=== PATIENT | female | born 1940 | race Caucasian/White ===

== ENCOUNTER 2018-06-25 08:47 | Emergency (ER) | payer MEDICARE, BC ==
--- NOTE | 2018-06-25 09:54 | CT ---
Head CT Technique: Multiple axial sections through the brain were obtained. Intravenous contrast was not utilized. Comparison: No prior intracranial imaging is available. Findings: Ventricles along with basal cisterns and sulci over the convexities are mildly prominent. Minimal diminished density is noted within the periventricular white matter compatible with small vessel ischemic demyelination change. No other abnormal parenchymal densities are seen. Mild atherosclerotic calcification is seen within the right vertebral vessel. Minimal mucosal thickening is partially visualized within the right maxillary sinus. No acute calvarial abnormality is seen. Impression: 1. Minimal sinus finding which is felt to be incidental. 2. Mild senescent change as noted above. 3. No acute intracranial abnormality is identified. Diagnostic code #2
--- NOTE | 2018-06-25 10:26 | EDM.PDOC ---
ED HPI GENERAL MEDICAL PROBLEM - General Chief Complaint: Cardiovascular Problem Stated Complaint: BLOOD PRESSURE SENT BY KATERIN Time Seen by Provider: 06/25/18 09:05 Source of Information: Reports: Patient, RN Notes Reviewed - History of Present Illness INITIAL COMMENTS - FREE TEXT/NARRATIVE: 78-year-old lady presents with multiple concerns. She has not been feeling well the last few days in a nonspecific way. She checked her blood pressure this morning it was quite elevated sounds like it was in the 180 some range over around 90 diastolic. She does appear to have some mild dementia, not able to give a real sharp history. She also is complaining of headache and some facial discomfort. She states she slipped and fell on the ice 2 or 3 months ago. She is having more severe headache this past week or so. The headache is primarily posterior, non-throbbing. She states she feels dizzy. She did take her blood pressure meds early this morning, she has no chest pain or difficulty breathing. She is also inquiring about her prednisone that she takes for myasthenia gravis. She is wondering if the dosage should be changed but cannot give me a good reason why that should be done. She had been seeing Dr. Robles but it sounds like he has retired. She has an appointment to see a different Neurologist "in September". - Related Data Allergies Allergy/AdvReac Type Severity Reaction Status Date / Time No Known Allergies Allergy Verified 06/25/18 09:01 Home Meds: Home Meds Alendronate Sodium [Alendronate] 70 mg PO ASDIRECTED 10/19/14 [History] Aspirin 81 mg PO DAILY 10/19/14 [History] Calcium Carbonate/Vitamin D3 [Caltrate 600 + D Tablet] 600 mg PO DAILY 10/19/14 [History] Metoprolol Succinate [Toprol XL] 25 mg PO DAILY 10/19/14 [History] Omeprazole 20 mg PO DAILY 10/19/14 [History] predniSONE [Prednisone] 10 mg PO ASDIRECTED 10/19/14 [History] Cholecalciferol (Vitamin D3) [Vitamin D3] 3,000 unit PO DAILY 12/20/14 [History] B2/Vit A,C & E/Lut/Zeaxanth/Mn [Icaps] 1 each PO DAILY 02/24/15 [History] Diltiazem [Cardizem CD] 240 mg PO DAILY 02/24/15 [History] Past Medical History HEENT History: Reports: Impaired Vision Cardiovascular History: Reports: Hypertension Neurological History: Reports: Other (See Below) Other Neuro History: myesthenia gravis Social & Family History - Tobacco Use Smoking Status *Q: Never Smoker - Caffeine Use Caffeine Use: Reports: Coffee - Recreational Drug Use Recreational Drug Use: No ED ROS GENERAL - Review of Systems Review Of Systems: See Below Constitutional: Denies: Fever, Chills, Diaphoresis HEENT: Denies: Throat Pain Respiratory: Denies: Shortness of Breath, Pleuritic Chest Pain Cardiovascular: Denies: Chest Pain GI/Abdominal: Denies: Abdominal Pain, Nausea, Vomiting Musculoskeletal: Denies: Leg Pain Neurological: Reports: Dizziness. Denies: Numbness, Tingling, Trouble Speaking , Weakness Psychiatric: Reports: Anxiety ED EXAM, GENERAL - Physical Exam Exam: See Below General Appearance: Alert, Anxious Eye Exam: Bilateral Eye: PERRL Throat/Mouth: Normal Inspection Head: Atraumatic Neck: Supple, Full Range of Motion Respiratory/Chest: No Respiratory Distress, Lungs Clear, Normal Breath Sounds Cardiovascular: Regular Rate, Rhythm GI/Abdominal: Soft, Non-Tender Back Exam: No: CVA Tenderness (L), CVA Tenderness (R) Extremities: Normal Inspection, Normal Range of Motion. No: Leg Pain Neurological: Alert, No Motor/Sensory Deficits Skin Exam: Warm, Dry, Normal Color Course - Vital Signs Last Recorded V/S: Last Vital Signs Temp 97.4 F 06/25/18 12:40 Pulse 70 06/25/18 12:40 Resp 16 06/25/18 12:40 BP 144/83 H 06/25/18 12:40 Pulse Ox 98 06/25/18 12:40 - Orders/Labs/Meds Labs: Laboratory Tests 06/25/18 06/25/18 Range/Units 09:50 09:50 WBC 6.22 (3.98-10.04) K/mm3 RBC 4.90 (3.98-5.22) M/mm3 Hgb 14.4 (11.2-15.7) gm/L Hct 44.5 (34.1-44.9) % MCV 90.8 (79.4-94.8) fl MCH 29.4 (25.6-32.2) pg MCHC 32.4 (32.2-35.5) g/dl RDW Std Deviation 46.9 H (36.4-46.3) fL Plt Count 258 (182-369) K/mm3 MPV 10.3 (9.4-12.3) fl Neut % (Auto) 89.2 H (34.0-71.1) % Lymph % (Auto) 7.7 L (19.3-51.7) % [place] % (Auto) 2.9 L (4.7-12.5) % Eos % (Auto) 0 L (0.7-5.8) Baso % (Auto) 0.0 L (0.1-1.2) % Neut # (Auto) 5.55 (1.56-6.13) K/mm3 Lymph # (Auto) 0.48 L (1.18-3.74) K/mm3 [place] # (Auto) 0.18 L (0.24-0.36) K/mm3 Eos # (Auto) 0.00 L (0.04-0.36) K/mm3 Baso # (Auto) 0.00 L (0.01-0.08) K/mm3 Manual Slide Review Abnormal smear Sodium 139 (136-145) mEq/L Potassium 4.2 (3.5-5.1) mEq/L Chloride 103 (98-107) mEq/L Carbon Dioxide 27 (21-32) mEq/L Anion Gap 13.2 (5-15) BUN 16 (7-18) mg/dL Creatinine 0.9 (0.55-1.02) mg/dL Est Cr Clr Drug Dosing TNP Estimated GFR (MDRD) > 60 (>60) mL/min BUN/Creatinine Ratio 17.8 (14-18) Glucose 135 H (83-115) mg/dL Calcium 8.9 (8.5-10.1) mg/dL Total Bilirubin 0.3 (0.2-1.0) mg/dL AST 17 (15-37) U/L ALT 30 (14-59) U/L Alkaline Phosphatase 64 (46-116) U/L Total Protein 6.4 (6.4-8.2) g/dl Albumin 3.2 L (3.4-5.0) g/dl Globulin 3.2 gm/dL Albumin/Globulin Ratio 1.0 (1-2) - Re-Assessments/Exams Free Text/Narrative Re-Assessment/Exam: 06/25/18 14:18 Patient demonstrated mild, not severe confusion at time of exam. When asked if she had seen a provider at the clinic she replied "no, the clinic is closed today" it sounds like she had called the clinic for appointment, "got the recording if this is an emergency go to the ER" so that is what she did. She was concerned about her blood pressure being high at home which may be was but on arrival to ED her blood pressure was not significantly high initial reading 165/83 and blood pressure did continue to trend down from there to the 150s, 140s and eventually of 137/65 reading. She stated that she had taken her blood pressure medicine this morning prior to coming in so those meds did eventually help bring her blood pressure down with nothing further given here in the ED. ceramic artist showed sinus rhythm, no ectopy. She had no chest pain or difficulty breathing while in the ED. I did check CBC and CMP and those labs were relatively normal. At time of discharge she started asking about multiple other things including whether she should be changing her prednisone dosage for her "myasthenia gravis", whether she should be on an antidepressant and a few others somewhat [id number] questions. I discussed with her that if she is she is going to be on an antidepressant or something for anxiety that should be prescribed by her regular medical provider who knows her history better than myself just seeing her this one time in the ED. Head CT was done considering her fall 2 or 3 months ago, headache and what seems to be some mild confusion. Head CT was normal. We did call and get an appointment for her to see her regular provider Dr Mcmanus, 2 days from now. She does know where she is at, who her regular medical provider is and answers other questions appropriately so it does seem safe for her to go home. Discharge instr. as documented. Departure - Departure Time of Disposition: 12:20 Disposition: Home, Self-Care 01 Condition: Fair Clinical Impression: Anxiety Hypertension Qualifiers: Hypertension type: essential hypertension Qualified Code(s): I10 - Essential ( primary) hypertension Instructions: Generalized Anxiety Disorder, Adult, Hypertension Referrals: Solo Bernard MD [Primary Care Provider] - Forms: ED Department Discharge, ED Return to Work/School Form Additional Instructions: Your blood pressure came down nicely while you have been here in the ED and now is at a normal level. Continue your current medications as prescribed. There is no evidence for heart attack, stroke or other serious medical problem at this time. With the multiple symptoms and concerns you have we need to have you follow-up with your regular provider Dr. Mcmanus for further evaluation, treatment as needed. We have set up an appointment for you for 11:30 AM this Monday 2 days from now to see Dr. Mcmanus at the clinic.
[2018-06-25 13:21] VITALS: BP 144/83
== END 2018-06-25 12:40 | disposition home or self-care (01) ==
LOC: JD.ED 08:47
DX: I10 Essential (primary) hypertension (principal); F41.9 Anxiety disorder, unspecified; R51 Headache; G70.00 Myasthenia gravis without (acute) exacerbation; Z79.82 Long term (current) use of aspirin; Z79.899 Other long term (current) drug therapy
CPT/HCPCS: 36415; 70450; 70450-26; 80053; 85025; 99282; 99284-25

== ENCOUNTER 2018-08-22 06:42 | Emergency (ER) | payer OTHER, MEDICARE, BC ==
[2018-08-22 06:53] VITALS: BP 137/83
--- NOTE | 2018-08-22 07:33 | EDM.PDOC ---
ED HPI GENERAL MEDICAL PROBLEM - General Chief Complaint: Back Pain or Injury Stated Complaint: BACK INJURY Time Seen by Provider: 08/22/18 06:52 Source of Information: Reports: Patient History Limitations: Reports: No Limitations - History of Present Illness INITIAL COMMENTS - FREE TEXT/NARRATIVE: The patient presents with low back pain. She was at work at [employer] and was fixing the carpet and she fell and hurt her back. She did not hit her head or hurt her neck. She has low back pain on both sides. The pain does not radiate down her legs. She has no bowel or bladder problems. This happened on Monday. Onset: Sudden Duration: Day(s): Location: Reports: Back Quality: Reports: Sharp Severity: Moderate Improves with: Reports: Immobilization Worsens with: Reports: Movement Context: Reports: Trauma (She fell at work and hurt her back) Associated Symptoms: Reports: No Other Symptoms Lower Back Pain Score (Numeric/FACES): 6 - Related Data Allergies Allergy/AdvReac Type Severity Reaction Status Date / Time No Known Allergies Allergy Verified 08/22/18 06:53 Home Meds: Home Meds Alendronate Sodium [Alendronate] 70 mg PO ASDIRECTED 10/19/14 [History] Aspirin 81 mg PO DAILY 10/19/14 [History] Calcium Carbonate/Vitamin D3 [Caltrate 600 + D Tablet] 600 mg PO DAILY 10/19/14 [History] Metoprolol Succinate [Toprol XL] 25 mg PO DAILY 10/19/14 [History] Omeprazole 20 mg PO DAILY 10/19/14 [History] predniSONE [Prednisone] 10 mg PO ASDIRECTED 10/19/14 [History] Cholecalciferol (Vitamin D3) [Vitamin D3] 3,000 unit PO DAILY 12/20/14 [History] B2/Vit A,C & E/Lut/Zeaxanth/Mn [Icaps] 1 each PO DAILY 02/24/15 [History] Diltiazem [Cardizem CD] 240 mg PO DAILY 02/24/15 [History] Cyclobenzaprine [Flexeril] 5 mg PO Q8HR PRN #10 tab 08/22/18 [Rx] Past Medical History HEENT History: Reports: Impaired Vision Cardiovascular History: Reports: Hypertension Neurological History: Reports: Other (See Below) Other Neuro History: myesthenia gravis Social & Family History - Tobacco Use Smoking Status *Q: Never Smoker - Caffeine Use Caffeine Use: Reports: Coffee ED ROS GENERAL - Review of Systems Review Of Systems: See Below Constitutional: Reports: No Symptoms HEENT: Reports: No Symptoms Respiratory: Reports: No Symptoms Cardiovascular: Reports: No Symptoms Endocrine: Reports: No Symptoms GI/Abdominal: Reports: No Symptoms : Reports: No Symptoms Musculoskeletal: Reports: Back Pain (Low back pain) ED EXAM,LOWER BACK PAIN/INJURY - Physical Exam Exam: See Below Exam Limited By: No Limitations General Appearance: Alert, No Apparent Distress Ears: Normal External Exam Nose: Normal Inspection Head: Atraumatic, Normocephalic Neck: Normal Inspection, Supple, Non-Tender Respiratory/Chest: No Respiratory Distress, Lungs Clear, Normal Breath Sounds Cardiovascular: Regular Rate, Rhythm, No Edema, No Murmur GI/Abdominal: Soft, Non-Tender, No Organomegaly, No Mass Back Exam: Other (Pain upon palpation to the left and right low back) Extremities: Normal Inspection Neurological: Alert, No Motor/Sensory Deficits, Oriented x 3 Course - Vital Signs Last Recorded V/S: Last Vital Signs Temp 97.2 F 08/22/18 06:51 Pulse 64 08/22/18 06:51 Resp 16 08/22/18 06:51 BP 137/83 08/22/18 06:51 Pulse Ox 94 L 08/22/18 06:51 - Orders/Labs/Meds Orders: Active Orders 24 hr Category Date Time Status Lumbar Spine 2 or 3V [CR] Stat Exams 08/22/18 06:55 Taken - Re-Assessments/Exams Free Text/Narrative Re-Assessment/Exam: 08/22/18 07:32 I ordered an x-ray of her back and it shows degenerative change, compression deformity at T 12 and scoliosis. 08/22/18 07:36 She is on prednisone so I will not put her on any antiinflammatories but I will give her a low dose muscle relaxer. Departure - Departure Time of Disposition: 19:40 Disposition: Home, Self-Care 01 Condition: Good Clinical Impression: Fall Qualifiers: Encounter type: initial encounter Qualified Code(s): W19.XXXA - Unspecified fall, initial encounter Low back pain Qualifiers: Chronicity: acute Back pain laterality: bilateral Sciatica presence: without sciatica Qualified Code(s): M54.5 - Low back pain Scoliosis Qualifiers: Scoliosis type: other forms of scoliosis Spinal region: lumbar Qualified Code(s ): M41.86 - Other forms of scoliosis, lumbar region Osteoarthritis of lumbar spine Qualifiers: Spinal osteoarthritis complication: unspecified spinal osteoarthritis Qualified Code(s): M47.816 - Spondylosis without myelopathy or radiculopathy, lumbar region - Discharge Information *PRESCRIPTION DRUG MONITORING PROGRAM REVIEWED*: No *COPY OF PRESCRIPTION DRUG MONITORING REPORT IN PATIENT JESSICA: No Prescriptions: Cyclobenzaprine [Flexeril] 5 mg PO Q8HR PRN #10 tab PRN Reason: Pain Referrals: Solo Bernard MD [Primary Care Provider] - Forms: ED Department Discharge Additional Instructions: Keep taking your medication as prescribed. Take the flexeril 5mg by mouth every 8 hours as needed for low back pain. Please return if you are worse. - My Orders Last 24 Hours: My Active Orders 08/22/18 06:55 Lumbar Spine 2 or 3V [CR] Stat - Assessment/Plan Last 24 Hours: My Active Orders 08/22/18 06:55 Lumbar Spine 2 or 3V [CR] Stat
--- NOTE | 2018-08-22 07:55 | CR ---
Lumbar spine: AP, lateral and coned-down lateral views centered to the lumbosacral junction were obtained. Comparison: Lateral reconstructed views obtained during CT chest and abdomen exam of 10/22/14 and 10/20/14 respectively. Mild superior compression deformity is noted of L2 which is old and stable from prior exam. Mild to moderate anterior wedge deformity is noted of T12 which is an interval change from previous studies in 2015. Age is otherwise indeterminate. Scattered disc space narrowing is noted with scattered endplate osteophytes. No abnormal subluxation is seen. Scoliosis is present. Vascular calcification is noted within the aorta. Impression: 1. Mild to moderate anterior wedge deformity of T12 which is an interval change from 2015, age otherwise is indeterminate. 2. Mild superior compression deformity of L2 which is old and stable. 3. Degenerative change and osteopenia. Diagnostic code #3
== END 2018-08-22 08:02 | disposition home or self-care (01) ==
LOC: JD.ED 06:42
DX: M47.816 Spondylosis without myelopathy or radiculopathy, lumbar region (principal); M41.86 Other forms of scoliosis, lumbar region; I10 Essential (primary) hypertension; Z79.82 Long term (current) use of aspirin; Z79.899 Other long term (current) drug therapy; W19.XXXA Unspecified fall, initial encounter
CPT/HCPCS: 72100; 72100-26; 99283; 99283-25

== ENCOUNTER 2020-01-31 11:33 | Emergency (ER) | payer MEDICARE, BC ==
--- NOTE | 2020-01-31 12:11 | EDM.PDOC ---
ED HPI GENERAL MEDICAL PROBLEM - General Chief Complaint: Respiratory Problem Stated Complaint: [facility] Time Seen by Provider: 01/31/20 12:10 Source of Information: Reports: Patient - History of Present Illness INITIAL COMMENTS - FREE TEXT/NARRATIVE: Patient is a 80-year-old female with a history of hypertension, myasthenia gravis, aortic stenosis with valve repair, who presents to the ED today complaining of shortness of breath, productive cough, fatigue, general malaise, and subjective fever. Patient just found out this morning she was positive for COVID. She was tested this past Monday. She states the productive cough started on Monday and has progressed. She denies any chest pain, documented fever, nausea vomiting, abdominal pain, pedal edema, orthopnea, or PND. - Related Data Allergies Allergy/AdvReac Type Severity Reaction Status Date / Time No Known Allergies Allergy Verified 01/31/20 11:47 Home Meds: Home Meds Alendronate Sodium [Alendronate] 70 mg PO ASDIRECTED 10/19/14 [History] Aspirin 81 mg PO DAILY 10/19/14 [History] Calcium Carbonate/Vitamin D3 [Caltrate 600 + D Tablet] 600 mg PO DAILY 10/19/14 [History] Metoprolol Succinate [Toprol XL] 25 mg PO DAILY 10/19/14 [History] Omeprazole 20 mg PO DAILY 10/19/14 [History] predniSONE [Prednisone] 10 mg PO ASDIRECTED 10/19/14 [History] Cholecalciferol (Vitamin D3) [Vitamin D3] 3,000 unit PO DAILY 12/20/14 [History] B2/Vits A,C,E/Lut/Zeaxanth/Min [Icaps] 1 each PO DAILY 02/24/15 [History] Cyclobenzaprine [Flexeril] 5 mg PO Q8HR PRN #10 tab 08/22/18 [Rx] Cranberry Fruit Extract [Cranberry] 200 mg PO DAILY PRN 09/03/18 [History] Diltiazem HCl [Diltiazem 24Hr ER] 120 mg PO DAILY 09/03/18 [History] Hydrocodone/Acetaminophen [Hydrocodone-Acetamin 5-325 mg] 1 - 2 each PO Q6HR PRN #20 tablet 09/03/18 [Rx] Propylene Glycol/Peg 400 [Systane 0.3-0.4% Eye Drops] 2 drop EYEBOTH BID 09/03/18 [History] Sertraline [Zoloft] 50 mg PO DAILY 09/03/18 [History] predniSONE 5 mg PO ASDIRECTED 09/03/18 [History] Past Medical History HEENT History: Reports: Impaired Vision Cardiovascular History: Reports: Hypertension Genitourinary History: Reports: UTI, Recurrent Musculoskeletal History: Reports: Back Pain, Chronic, Osteoporosis Neurological History: Reports: Other (See Below) Other Neuro History: myesthenia gravis Psychiatric History: Reports: Depression - Infectious Disease History Infectious Disease History: Reports: Chicken Pox, Measles - Past Surgical History HEENT Surgical History: Reports: Cataract Surgery, Tonsillectomy Cardiovascular Surgical History: Reports: Other (See Below) Other Cardiovascular Surgeries/Procedures: aortic valve replacement GI Surgical History: Reports: Appendectomy Musculoskeletal Surgical History: Reports: Other (See Below) Other Musculoskeletal Surgeries/Procedures:: broke R leg- 5 pins and a plate Social & Family History - Family History Family Medical History: Noncontributory - Caffeine Use Caffeine Use: Reports: Coffee ED ROS GENERAL - Review of Systems Review Of Systems: See Below Constitutional: Reports: Fever, Chills, Malaise, Fatigue, Decreased Appetite Respiratory: Reports: Shortness of Breath, Cough. Denies: Pleuritic Chest Pain, Hemoptysis Cardiovascular: Reports: Dyspnea on Exertion. Denies: Chest Pain, Lightheadedness, Palpitations, Syncope GI/Abdominal: Denies: Abdominal Pain, Constipation, Diarrhea, Nausea, Vomiting Skin: Reports: No Symptoms Neurological: Reports: No Symptoms ED EXAM, GENERAL - Physical Exam Exam: See Below Exam Limited By: No Limitations General Appearance: Alert, WD/WN, Mild Distress Eye Exam: Bilateral Eye: Normal Inspection Ears: Hearing Grossly Normal Nose: Normal Inspection, Normal Mucosa, No Blood Throat/Mouth: Normal Inspection, Normal Oropharynx, Normal Voice, No Airway Compromise Head: Atraumatic, Normocephalic Neck: Normal Inspection, Supple, Non-Tender, Full Range of Motion. No: Lymphadenopathy (L), Lymphadenopathy (R) Respiratory/Chest: No Respiratory Distress, No Accessory Muscle Use, Chest Non- Tender, Rhonchi (all lung browne. no wheezing. ). No: Decreased Breath Sounds, Crackles, Rales, Retractions, Prolonged Expiration Cardiovascular: Normal Peripheral Pulses, Regular Rate, Rhythm, Systolic Murmur Peripheral Pulses: 2+: Radial (L), Radial (R) GI/Abdominal: Normal Bowel Sounds, Soft, Non-Tender, No Organomegaly, No Distention Back Exam: Normal Inspection Extremities: Normal Inspection, Normal Range of Motion, Non-Tender, No Pedal Edema Neurological: Alert, Oriented, CN II-XII Intact, Normal Cognition, No Motor/Sensory Deficits Psychiatric: Normal Affect, Normal Mood Skin Exam: Warm, Dry, Intact, Normal Color Course - Vital Signs Last Recorded V/S: Last Vital Signs Temp 99.3 F 01/31/20 11:41 Pulse 79 01/31/20 13:51 Resp 28 H 01/31/20 13:51 BP 107/59 L 01/31/20 13:51 Pulse Ox 95 01/31/20 15:17 - Orders/Labs/Meds Orders: Active Orders 24 hr Category Date Time Status Sweeney Catheter Insertion [Insert Urinary Catheter] [OM. Care 01/31/20 19:45 Ordered PC] Q24H Chest 1V Frontal [CR] Stat Exams 01/31/20 12:01 Taken CULTURE BLOOD [BC] Stat Lab 01/31/20 13:05 Received CULTURE BLOOD [BC] Stat Lab 01/31/20 13:14 Results Blood Culture x2 Reflex Set [OM.PC] Stat Oth 01/31/20 12:30 Ordered Labs: Laboratory Tests 01/31/20 01/31/20 01/31/20 Range/Units 11:52 11:52 11:52 WBC 9.03 (3.98-10.04) K/mm3 RBC 3.51 L (3.98-5.22) M/mm3 Hgb 10.8 L D (11.2-15.7) gm/dl Hct 34.3 (34.1-44.9) % MCV 97.7 H D (79.4-94.8) fl MCH 30.8 (25.6-32.2) pg MCHC 31.5 L (32.2-35.5) g/dl RDW Std Deviation 47.6 H (36.4-46.3) fL Plt Count 186 D (182-369) K/mm3 MPV 11.3 (9.4-12.3) fl Neut % (Auto) 88.2 H (34.0-71.1) % Lymph % (Auto) 4.4 L (19.3-51.7) % Adair % (Auto) 7.1 (4.7-12.5) % Eos % (Auto) 0 L (0.7-5.8) Baso % (Auto) 0.2 (0.1-1.2) % Neut # (Auto) 7.96 H (1.56-6.13) K/mm3 Lymph # (Auto) 0.40 L (1.18-3.74) K/mm3 [place] # (Auto) 0.64 H (0.24-0.36) K/mm3 Eos # (Auto) 0.00 L (0.04-0.36) K/mm3 Baso # (Auto) 0.02 (0.01-0.08) K/mm3 Manual Slide Review Abnormal smear PT (9.7-11.7) SECONDS INR APTT (22-31) SECONDS D-Dimer, Quantitative 0.94 H (0.19-0.50) mg/L Puncture Site ABG pH (7.35-7.45) ABG pCO2 (35.0-45.0) mmHg ABG pO2 (80.0-100.0) mmHg ABG HCO3 (22.0-26.0) meq/L ABG O2 Saturation (96.0-97.0) % ABG Base Excess (-2-2.0) Ag Test A-a Gradient mmHg O2 Delivery Device Oxygen Flow Rate FiO2 (21.00-100.00) % Sodium 133 L (136-145) mEq/L Potassium 3.6 (3.5-5.1) mEq/L Chloride 98 (98-107) mEq/L Carbon Dioxide 26 (21-32) mEq/L Anion Gap 12.6 (5-15) BUN 20 H (7-18) mg/dL Creatinine 0.9 (0.55-1.02) mg/dL Est Cr Clr Drug Dosing 36.41 mL/min Estimated GFR (MDRD) > 60 (>60) mL/min BUN/Creatinine Ratio 22.2 H (14-18) Glucose 144 H (83-115) mg/dL Calcium 8.7 (8.5-10.1) mg/dL Ferritin (8-252) ng/ml Total Bilirubin 0.4 (0.2-1.0) mg/dL AST 34 (15-37) U/L ALT 26 (14-59) U/L Alkaline Phosphatase 65 (46-116) U/L Lactate Dehydrogenase (81-234) U/L Troponin I (0.00-0.056) ng/mL C-Reactive Protein (<1.0) mg/dL NT-Pro-B Natriuret Pep (0-450) pg/mL Total Protein 6.0 L (6.4-8.2) g/dl Albumin 2.8 L (3.4-5.0) g/dl Globulin 3.2 gm/dL Albumin/Globulin Ratio 0.9 L (1-2) 01/31/20 01/31/20 01/31/20 Range/Units 11:52 11:52 11:52 WBC (3.98-10.04) K/mm3 RBC (3.98-5.22) M/mm3 Hgb (11.2-15.7) gm/dl Hct (34.1-44.9) % MCV (79.4-94.8) fl MCH (25.6-32.2) pg MCHC (32.2-35.5) g/dl RDW Std Deviation (36.4-46.3) fL Plt Count (182-369) K/mm3 MPV (9.4-12.3) fl Neut % (Auto) (34.0-71.1) % Lymph % (Auto) (19.3-51.7) % [place] % (Auto) (4.7-12.5) % Eos % (Auto) (0.7-5.8) Baso % (Auto) (0.1-1.2) % Neut # (Auto) (1.56-6.13) K/mm3 Lymph # (Auto) (1.18-3.74) K/mm3 [place] # (Auto) (0.24-0.36) K/mm3 Eos # (Auto) (0.04-0.36) K/mm3 Baso # (Auto) (0.01-0.08) K/mm3 Manual Slide Review PT 11.9 H (9.7-11.7) SECONDS INR 1.11 APTT 27 (22-31) SECONDS D-Dimer, Quantitative (0.19-0.50) mg/L Puncture Site ABG pH (7.35-7.45) ABG pCO2 (35.0-45.0) mmHg ABG pO2 (80.0-100.0) mmHg ABG HCO3 (22.0-26.0) meq/L ABG O2 Saturation (96.0-97.0) % ABG Base Excess (-2-2.0) Ag Test A-a Gradient mmHg O2 Delivery Device Oxygen Flow Rate FiO2 (21.00-100.00) % Sodium (136-145) mEq/L Potassium (3.5-5.1) mEq/L Chloride (98-107) mEq/L Carbon Dioxide (21-32) mEq/L Anion Gap (5-15) BUN (7-18) mg/dL Creatinine (0.55-1.02) mg/dL Est Cr Clr Drug Dosing mL/min Estimated GFR (MDRD) (>60) mL/min BUN/Creatinine Ratio (14-18) Glucose (83-115) mg/dL Calcium (8.5-10.1) mg/dL Ferritin 559 H (8-252) ng/ml Total Bilirubin (0.2-1.0) mg/dL AST (15-37) U/L ALT (14-59) U/L Alkaline Phosphatase (46-116) U/L Lactate Dehydrogenase 285 H (81-234) U/L Troponin I (0.00-0.056) ng/mL C-Reactive Protein (<1.0) mg/dL NT-Pro-B Natriuret Pep (0-450) pg/mL Total Protein (6.4-8.2) g/dl Albumin (3.4-5.0) g/dl Globulin gm/dL Albumin/Globulin Ratio (1-2) 01/31/20 01/31/20 01/31/20 Range/Units 11:52 11:52 13:10 WBC (3.98-10.04) K/mm3 RBC (3.98-5.22) M/mm3 Hgb (11.2-15.7) gm/dl Hct (34.1-44.9) % MCV (79.4-94.8) fl MCH (25.6-32.2) pg MCHC (32.2-35.5) g/dl RDW Std Deviation (36.4-46.3) fL Plt Count (182-369) K/mm3 MPV (9.4-12.3) fl Neut % (Auto) (34.0-71.1) % Lymph % (Auto) (19.3-51.7) % [place] % (Auto) (4.7-12.5) % Eos % (Auto) (0.7-5.8) Baso % (Auto) (0.1-1.2) % Neut # (Auto) (1.56-6.13) K/mm3 Lymph # (Auto) (1.18-3.74) K/mm3 [place] # (Auto) (0.24-0.36) K/mm3 Eos # (Auto) (0.04-0.36) K/mm3 Baso # (Auto) (0.01-0.08) K/mm3 Manual Slide Review PT (9.7-11.7) SECONDS INR APTT (22-31) SECONDS D-Dimer, Quantitative (0.19-0.50) mg/L Puncture Site Rt radial ABG pH 7.46 H (7.35-7.45) ABG pCO2 34.0 L (35.0-45.0) mmHg ABG pO2 57.0 L (80.0-100.0) mmHg ABG HCO3 24.0 (22.0-26.0) meq/L ABG O2 Saturation 90.0 L (96.0-97.0) % ABG Base Excess 0.9 (-2-2.0) Ag Test A-a Gradient 214 mmHg O2 Delivery Device Nasal cannula Oxygen Flow Rate 6.0 FiO2 44.00 (21.00-100.00) % Sodium (136-145) mEq/L Potassium (3.5-5.1) mEq/L Chloride (98-107) mEq/L Carbon Dioxide (21-32) mEq/L Anion Gap (5-15) BUN (7-18) mg/dL Creatinine (0.55-1.02) mg/dL Est Cr Clr Drug Dosing mL/min Estimated GFR (MDRD) (>60) mL/min BUN/Creatinine Ratio (14-18) Glucose (83-115) mg/dL Calcium (8.5-10.1) mg/dL Ferritin (8-252) ng/ml Total Bilirubin (0.2-1.0) mg/dL AST (15-37) U/L ALT (14-59) U/L Alkaline Phosphatase (46-116) U/L Lactate Dehydrogenase (81-234) U/L Troponin I 0.023 (0.00-0.056) ng/mL C-Reactive Protein 17.5 H* (<1.0) mg/dL NT-Pro-B Natriuret Pep 3678 H (0-450) pg/mL Total Protein (6.4-8.2) g/dl Albumin (3.4-5.0) g/dl Globulin gm/dL Albumin/Globulin Ratio (1-2) 01/31/20 Range/Units 19:25 WBC (3.98-10.04) K/mm3 RBC (3.98-5.22) M/mm3 Hgb (11.2-15.7) gm/dl Hct (34.1-44.9) % MCV (79.4-94.8) fl MCH (25.6-32.2) pg MCHC (32.2-35.5) g/dl RDW Std Deviation (36.4-46.3) fL Plt Count (182-369) K/mm3 MPV (9.4-12.3) fl Neut % (Auto) (34.0-71.1) % Lymph % (Auto) (19.3-51.7) % [place] % (Auto) (4.7-12.5) % Eos % (Auto) (0.7-5.8) Baso % (Auto) (0.1-1.2) % Neut # (Auto) (1.56-6.13) K/mm3 Lymph # (Auto) (1.18-3.74) K/mm3 [place] # (Auto) (0.24-0.36) K/mm3 Eos # (Auto) (0.04-0.36) K/mm3 Baso # (Auto) (0.01-0.08) K/mm3 Manual Slide Review PT (9.7-11.7) SECONDS INR APTT (22-31) SECONDS D-Dimer, Quantitative (0.19-0.50) mg/L Puncture Site Lt radial ABG pH 7.41 (7.35-7.45) ABG pCO2 37.7 (35.0-45.0) mmHg ABG pO2 54.0 L (80.0-100.0) mmHg ABG HCO3 23.5 (22.0-26.0) meq/L ABG O2 Saturation 84.1 L (96.0-97.0) % ABG Base Excess -0.4 (-2-2.0) Ag Test Positive A-a Gradient 612 mmHg O2 Delivery Device Nrb mask Oxygen Flow Rate 15.0 FiO2 100.00 (21.00-100.00) % Sodium (136-145) mEq/L Potassium (3.5-5.1) mEq/L Chloride (98-107) mEq/L Carbon Dioxide (21-32) mEq/L Anion Gap (5-15) BUN (7-18) mg/dL Creatinine (0.55-1.02) mg/dL Est Cr Clr Drug Dosing mL/min Estimated GFR (MDRD) (>60) mL/min BUN/Creatinine Ratio (14-18) Glucose (83-115) mg/dL Calcium (8.5-10.1) mg/dL Ferritin (8-252) ng/ml Total Bilirubin (0.2-1.0) mg/dL AST (15-37) U/L ALT (14-59) U/L Alkaline Phosphatase (46-116) U/L Lactate Dehydrogenase (81-234) U/L Troponin I (0.00-0.056) ng/mL C-Reactive Protein (<1.0) mg/dL NT-Pro-B Natriuret Pep (0-450) pg/mL Total Protein (6.4-8.2) g/dl Albumin (3.4-5.0) g/dl Globulin gm/dL Albumin/Globulin Ratio (1-2) Meds: Medications Discontinued Medications Generic Name Dose Route Start Last Admin Trade Name Freq PRN Reason Stop Dose Admin Albuterol 0 gm 01/31/20 12:45 01/31/20 19:50 Proventil Hfa INH 2 puff Q4H SHEMAR Administration Furosemide 40 mg 01/31/20 19:22 01/31/20 19:30 Lasix IVPUSH 01/31/20 19:23 40 mg NOW ONE Administration Sodium Chloride 1,000 mls @ 50 mls/hr 01/31/20 14:30 01/31/20 14:27 Normal Saline IV 75 mls/hr ASDIRECTED SHEMAR Administration Remdesivir 200 mg/ Sodium 250 mls @ 250 mls/hr 01/31/20 15:26 01/31/20 16:03 Chloride IV 01/31/20 15:27 250 mls/hr ONETIME ONE Administration - Re-Assessments/Exams Free Text/Narrative Re-Assessment/Exam: Upon arrival patient's vital signs: Blood pressure 119/61, respiratory rate 36, temperature 99.3, pulse 76, O2 sats 93% on nasal cannula 6 L/min. Lungs rhonchi throughout all lung browne. Productive cough present. She does not appear in acute distress. She states she is mildly short of breath at rest. Denies any chest pain at this time. EMS found the patient complaining of shortness of breath with O2 sats in the 50s on room air. Patient was placed on nonrebreather at 15 L/min with increase in O2 sats to 93%. Studies to include: EKG, chest x-ray, CBC, CHEM 14, CRP, ferritin, LDH, blood cultures x2, d-dimer, and troponin. Chest x-ray impression: Bilateral infiltrates in all lung browne. Fluid right horizontal fissure. BNP ordered. Labs reviewed: Blood cell count 9.03, hemoglobin 10.8 decreased from 13.6 on 09/03/2018, platelet count 186, neutrophil percentage is 88.2, lymphocyte percentage is 4.4 low, neutrophil number is 7.96, lymphocyte number is 0.46, abnormal smear neutrophilia and lymphopenia, d-dimer elevated 0.94 consistent for COVID, sodium 133, AG 12.6, CO2 26, potassium 3.6, creatinine 0.9, glucose 144, ferritin is elevated at 559, and LDH 285 elevated. Inflammatory markers for COVID elevated. Due to hypoxia patient will require hospitalization. Final interpretation of chest x-ray pending. Will look at transferring patient to [place] since we are on diversion. Final Chest x-ray final impression: Patchy bilateral opacities may represent multifocal pneumonia. Remaining labs: LDH is 285, CRP 17.5. Troponin within normal limits of 0.023. BNP is 3678. No previous results present. She does not appear to be in fluid overload based on exam. Will hold off on IV lasix. ABG: pH 7.46, PCO2 34, PO2 of 57, HCO3 is 24, O2 saturations on 6 L nasal cannula 90. EKG: Sinus rhythm at a rate of 76 with a SC interval 173 and QTC of 441. No acute ST changes noted. 01/31/20 13:[address] Murrell. Requested we try tapering the patient's O2 requirements down to 5 L/min via NC if able. If able he will accept the patient. If not patient will require ICU admission. I will call back in 15 minutes. 1420 per nursing staff patient's O2 saturation was 79% on room air. O2 will be increased with goal of greater or equal to 92%. 1520 Patient's O2 sats have trended up to 96% on 5 L/min nasal cannula. Blood pressure 107/56, heart rate 69, respiratory rate 26. [address] Murrell. He has accepted the patient. Agreed to start patient on remdesivir. Ambulance has been paged out. 01/31/20 19:21 Per nursing staff, patient was up to use the comode and desaturated to the low 60s. She is currently on O2 nonrebreather 15 L/min with O2 sats of 84 %. ABG will be obtained. Dr. Downing suggested lasix 40mg IV due to CXR findings and BNP. This has been ordered. 01/31/20 19:25 Reevaluation patient sitting in bed breathing at 33 times a minute and shallow. On auscultation she does have some crackles to the right base. O2 sats 82% on 15 L per nonrebreather, Heart rate 78, blood pressure 128/66. ABGs are being obtained. I have ordered BIPAP. Would like to obtain a CTA of the chest to rule out PE but Dr. Downing does not suspect this is related to a PE but more likely COVID related as well strain on the heart causing her to be in CHF. Intubation has been discussed. We will hold off at this point. 01/31/20 20:06 Blood pressure 121/60, heart rate 88, SPO2 90%. Patient continues to be on the rebreather at 15 L/min. The catheter has been ordered. Second ABG indicated pH 7.41, PCO2 37, PO2 54, bicarb 23.5, O2 sats are 84.1%, Patient's O2 sats did stabilize at 88-90 on nonrebreather 15 L/min. Again patient did not appear in any acute distress. Per nursing staff patient was placed on CPAP prior to transfer and was tolerating. BiPAP was not available for transfer at this time. Patient will require transfer to the ICU and not the medical floor due to the patient's liable O2 saturation. Nursing staff has jihan ling in contact with [facility] to provide update to patients status. Departure - Departure Time of Disposition: 15:28 Disposition: DC/Tfer to [facility] 02 Condition: Serious Clinical Impression: COVID-19 virus detected, Dependence on supplemental oxygen Respiratory failure Qualifiers: Chronicity: acute Respiratory failure complication: hypoxia Qualified Code(s): J96.01 - Acute respiratory failure with hypoxia Anemia Qualifiers: Anemia type: unspecified type Qualified Code(s): D64.9 - Anemia, unspecified - Discharge Information Referrals: PCP,None [Ordering Only Provider] - Forms: ED Department Discharge Sepsis Event Note (ED) - Evaluation Sepsis Screening Result: No Definite Risk - My Orders Last 24 Hours: My Active Orders 01/31/20 12:01 Chest 1V Frontal [CR] Stat 01/31/20 12:30 Blood Culture x2 Reflex Set [OM.PC] Stat 01/31/20 13:05 CULTURE BLOOD [BC] Stat 01/31/20 13:14 CULTURE BLOOD [BC] Stat 01/31/20 19:45 Sweeney Catheter Insertion [Insert Urinary Catheter] [OM.PC] Q24H - Assessment/Plan Last 24 Hours: My Active Orders 01/31/20 12:01 Chest 1V Frontal [CR] Stat 01/31/20 12:30 Blood Culture x2 Reflex Set [OM.PC] Stat 01/31/20 13:05 CULTURE BLOOD [BC] Stat 01/31/20 13:14 CULTURE BLOOD [BC] Stat 01/31/20 19:45 Sweeney Catheter Insertion [Insert Urinary Catheter] [OM.PC] Q24H
[2020-01-31 13:51] VITALS: BP 107/59; PULSE 79
[2020-01-31] MEDS ORDERED: Sodium Chloride 0.9% 1,000 ML IV SCH (14:30)
[2020-01-31] MEDS: Albuterol 6.7 GM Inhaler INH SCH ×2 (14:33→19:50)
[2020-01-31] MEDS ORDERED: Furosemide 40 MG/4 ML VIAL IVPUSH ONE (19:22)
--- NOTE | 2020-03-02 15:36 | CR ---
PROCEDURE INFORMATION: Exam: XR Chest, 1 View Exam date and time: 01/31/2020 11:51 AM Age: 80 years old Clinical indication: Cough and shortness of breath TECHNIQUE: Imaging protocol: XR of the chest Views: 1 view. COMPARISON: CR Chest 1V Frontal 12/20/2014 9:46 AM FINDINGS: Tubes, catheters and devices: Overlying EKG wires Lungs: Patchy bilateral opacities may represent multifocal pneumonia. . Interstitial densities in the lung browne may represent interstitial edema Pleural space: Unremarkable. No pleural effusion. No pneumothorax. Heart/Mediastinum: Unremarkable. No cardiomegaly. Bones/joints: Median sternotomy IMPRESSION: Patchy bilateral opacities may represent multifocal pneumonia. . Thank you for allowing us to participate in the care of your patient. Dictated and Authenticated by: Edgard Neely MD 03/02/2020 4:17 PM Central Time ([place] & [place]) [place]
== END 2020-01-31 20:58 ==
LOC: JD.ED 11:33
DX: U07.1 COVID-19 (principal); J96.01 Acute respiratory failure with hypoxia; D64.9 Anemia, unspecified; Z99.81 Dependence on supplemental oxygen; I10 Essential (primary) hypertension; G70.00 Myasthenia gravis without (acute) exacerbation; F32.9 Major depressive disorder, single episode, unspecified; Z79.82 Long term (current) use of aspirin; Z79.899 Other long term (current) drug therapy; Z90.49 Acquired absence of other specified parts of digestive tract
CPT/HCPCS: 36415; 36600; 51702; 71045; 80053; 82728; 82803; 83615; 83880; 84484; 85025; 85379; 85610; 85730; 86140; 87040; 93005; 96361; 96365; 96375; 99285; A9270; J1940; J7030; J7050; 93010; 99283